=== PATIENT | female | born 1955 | race African-American/Black ===

== ENCOUNTER 2017-07-25 11:16 | Emergency (ER) | payer MEDICAID ==
[~2017-07-25] VITALS: Ht 160 cm; Wt 72.6 kg
[2017-07-25 11:20] VITALS: BP 117/52
== END 2017-07-25 19:20 | disposition left against medical advice (07) ==
LOC: ER 12:37
DX: Z53.21 Procedure and treatment not carried out due to patient leaving prior to being seen by health care provider (principal)